=== PATIENT | female | born 1995 | race Caucasian/White ===

== ENCOUNTER → 2024-09-11 14:21 | Outpatient (REF) | payer BC, SELFPAY | LOC: WDC 14:21 | PROVIDERS: ATTENDING PHYSICIAN Student in an Organized Health Care Education/Training Program | DX: N63.23 Unspecified lump in the left breast, lower outer quadrant (principal) | CPT/HCPCS: 76642 ==

== ENCOUNTER → 2025-03-03 14:57 | Outpatient (REF) | payer BC, SELFPAY | LOC: WDC 14:57 | PROVIDERS: ATTENDING PHYSICIAN Physician Assistant | DX: R92.8 Other abnormal and inconclusive findings on diagnostic imaging of breast (principal) | CPT/HCPCS: 76642 ==